=== PATIENT | male | born 1950 | race Two or more races ===

== ENCOUNTER → 2020-08-22 11:59 | Outpatient (CLI) | payer OTHER | END | disposition home or self-care (01) | LOC: LAB 11:59 | PROVIDERS: ATTEND Urology | DX: R97.20 Elevated prostate specific antigen [PSA] (principal) ==

== ENCOUNTER 2020-09-02 07:41 | Outpatient (CLI) | payer OTHER | END 2020-09-02 07:49 | disposition home or self-care (01) | LOC: SONOGRAMA 07:41 | PROVIDERS: ATTEND Urology | DX: C61 Malignant neoplasm of prostate (principal); D29.1 Benign neoplasm of prostate; R97.20 Elevated prostate specific antigen [PSA] ==

== ENCOUNTER 2024-03-02 07:03 | Day surgery (SDC) | payer OTHER ==
[2024-03-02] MEDS ORDERED: DIPHENHYDRAMINE HCL 50 MG/ML VIAL 1ML IV ONE (11:15)
[2024-03-02] MEDS ORDERED: fentaNYL CITRATE 50 MCG/ML AMPUL IV ONE (11:15)
[2024-03-02] MEDS ORDERED: MIDAZOLAM HCL 2 MG/2 ML VIAL IV ONE (11:15)
== END 2024-03-02 13:00 | disposition home or self-care (01) ==
LOC: AMB-ENDOS 07:03
PROVIDERS: ATTEND Surgery
DX: D12.0 Benign neoplasm of cecum (principal); K63.5 Polyp of colon; K57.30 Diverticulosis of large intestine without perforation or abscess without bleeding